=== PATIENT | male | born 1970 | race Caucasian/White ===

== ENCOUNTER 2018-07-23 21:33 | Emergency (ER) | payer OTHER ==
--- NOTE | 2018-07-23 22:35 | RADIOLOGY REPORT (SQ) ---
Right hand three views HISTORY: Right hand pain, trauma, cut on glass. FINDINGS: Bony alignment is anatomic. No fracture or dislocation. Soft tissues are unremarkable. No radiopaque foreign body. IMPRESSION: No fracture.
[2018-07-23] MEDS ORDERED: LIDOCAINE 1%/EPINEPHRINE INJ 20 ML VIAL INJ ONE (23:06)
--- NOTE | 2018-07-23 23:09 | ER Document Report ---
ED Wound - General Chief Complaint: Laceration Stated Complaint: HAND LACERATION Time Seen by Provider: 07/23/18 22:23 Notes: Patient is a 47-year-old male that comes to the emergency department for chief complaint of laceration to his right palm. He states that he was trying to open a bottle of wine when the bottle shattered when he pulled the court and he cut himself with the broken glass. He denies any other injuries. He is up-to- date on his tetanus within 5 years. He denies diabetes. He is not on a blood thinner. - Related Data Allergies/Adverse Reactions: No Known Allergies Allergy (Unverified 07/23/18 22:14) Past Medical History - General Information source: Patient - Social History Smoking Status: Never Smoker Chew tobacco use (# tins/day): No Frequency of alcohol use: Occasional Drug Abuse: None Lives with: Family Family History: Reviewed & Not Pertinent Patient has suicidal ideation: No Patient has homicidal ideation: No - Medical History Medical History: Negative Renal/ Medical History: Denies: Hx Peritoneal Dialysis Surgical Hx: Negative - Immunizations Immunizations up to date: Yes Hx Diphtheria, Pertussis, Tetanus Vaccination: Yes Review of Systems - Review of Systems Constitutional: No symptoms reported EENT: No symptoms reported Cardiovascular: No symptoms reported Respiratory: No symptoms reported Gastrointestinal: No symptoms reported Genitourinary: No symptoms reported Male Genitourinary: No symptoms reported Musculoskeletal: See HPI Skin: See HPI Hematologic/Lymphatic: No symptoms reported Neurological/Psychological: No symptoms reported Physical Exam - Vital signs Vitals: Temp Pulse Resp BP Pulse Ox 97.7 F 81 17 137/81 H 100 07/23/18 21:56 07/23/18 21:56 07/23/18 21:56 07/23/18 21:56 07/23/18 21:56 - Notes Notes: GENERAL: Alert, interacts well. No acute distress. HEAD: Normocephalic, atraumatic. EYES: Pupils equal, round, and reactive to light. Extraocular movements intact. ENT: Oral mucosa moist, tongue midline. LUNGS: Clear to auscultation bilaterally, no wheezes, rales, or rhonchi. No respiratory distress. HEART: Regular rate and rhythm. No murmur ABDOMEN: Soft, non-tender. Non-distended. Bowel sounds present in all 4 quadrants. GENITOURINARY: Deferred EXTREMITIES: There is a flap partial-thickness laceration over the mid palm, some bleeding, normal range of motion of the hand, normal sensation and capillary refill, normal wrist, normal upper extremity exam otherwise. BACK: no cervical, thoracic, lumbar midline tenderness. No saddle anesthesia, normal distal neurovascular exam. NEUROLOGICAL: Alert and oriented x3. Normal speech. SKIN: Warm, dry, normal turgor. No rashes or lesions noted. Course - Re-evaluation Re-evalutation: Wound is a flap and is easily explored. No evidence of tendon, nerve, large vessel injury. No foreign body on x-ray or on exam after this was carefully explored. Irrigated thoroughly, closed with sutures, placed on Keflex prophylactic antibiotic after discussion with patient. Discussed follow-up and return precautions. Patient states understanding and agreement. - Vital Signs Vital signs: Temp Pulse Resp BP Pulse Ox 97.8 F 58 L 16 117/71 98 07/24/18 00:11 07/24/18 00:11 07/24/18 00:11 07/24/18 00:11 07/24/18 00:11 Procedures - Laceration/Wound Repair Right palm Wound length (cm): 2.5 Wound's Depth, Shape: Flap Anesthetic type: 1% Lidocaine w/epi Volume Anesthetic (mLs): 3 Wound explored: Clean, No foreign body removed Irrigated w/ Saline (mLs): 70 Wound Debrided: Minimal Wound Repaired With: Sutures Suture Size/Type: 4:0, Nylon Number of Sutures: 7 Layer Closure?: No Post-procedure wound care: Sterile dressing applied Post-procedure NV exam normal: Yes Complications: No Discharge - Discharge Clinical Impression: Laceration of right palm Qualifiers: Encounter type: initial encounter Qualified Code(s): S61.411A - Laceration without foreign body of right hand, initial encounter Condition: Stable Disposition: HOME, SELF-CARE Additional Instructions: X-ray shows no foreign body or concerning finding. Keep clean, clean with soap and water, dab dry, avoid soaking. Sutures should come out in about 7 days. Take Keflex antibiotics as prescribed to prevent infection. Return if you worsen including developing redness, discolored drainage, swelling , severe pain, fever, or any other concerning symptoms. Prescriptions: Cephalexin Monohydrate [Keflex 500 mg Capsule] 500 mg PO TID #15 capsule
[2018-07-23] MEDS ORDERED: CEPHALEXIN 500 MG CAPSULE PO ONE (23:49)
[2018-07-24 00:14] VITALS: BP 117/71
== END 2018-07-24 00:11 | disposition home or self-care (01) ==
LOC: ER 21:33
PROC: 0HQFXZZ Repair Right Hand Skin, External Approach (ICD-10-PCS; principal; 2018-07-23)
DX: S61.411A Laceration without foreign body of right hand, initial encounter (principal); W25.XXXA Contact with sharp glass, initial encounter
CPT/HCPCS: 99283; 73130; 12001; J3490